=== PATIENT | female | born 1965 | race African-American/Black ===

== ENCOUNTER → 2017-02-16 | Outpatient (CLI) | payer MEDICARE, BC ==
[~2017-02-16] MED LIST: DIFLUCAN200 MG PO; DYAZIDE 37.5/251 CAP PO; FLAGYL PO; HCTZ PO; METOPROLOL SUCC25 MG PO; PERCOCET5/325 PO; PROTONIX PO; RENAL SOFTGEL1 MG PO; VIBRAMYCIN100 M1 PO
--- NOTE | ~2017-02-16 | MY29 ---
[facility] A Service of [facility] & [facility] RADIOLOGY TEXT RESULTS PATIENT: DEANNA BRASWELL LOCATION: [facility] : 61 UNIT #: [id number] AGE: [address]: Amanda Rios APRN SEX: F ORDER DR: [id number] [facility] [address] [place], [place] [address] [id number] O MR#: [id number] Acc #: [id number] NAME: DEANNA BRASWELL : 1965 SEX: F STUDY DATE/TIME: 02/16/2017 12:31 UNIT: [facility] ROOM: STUDY DESCRIPTION: [facility] SCREENING W/ CAD BILAT Attending Physician: Amanda Rios A.P.R.N. Referring Physician: Amanda Rios A.P.R.N. Ordering Physician: Amanda Rios A.P.R.N. Primary Care Physician: Amanda Rios A.P.R.N. MEDICAL IMAGING REPORT This report is preliminary unless electronic signature is present EXAM Digital screening mammogram 02/16/2017 HISTORY 52-year-old woman, no risk elevation. Annual screen. COMPARISON STUDIES Comparison 10/04/2010, 02/20/2012 FINDINGS Digital imaging of each breast was completed utilizing a two-view examination of each breast in craniocaudal and mediolateral-oblique projections. Review and interpretation of digital mammograms include a second review in conjunction with FDA-approved CAD device. There is a normal parenchymal presentation bilaterally consistent with the patient's age. There are no breast masses imaged and no parenchymal asymmetry is visualized. There are no suspicious microcalcifications and I see no focal architectural disturbance. IMPRESSION Negative screening digital mammogram. One-year followup recommended. Patients over the age of 40 are entered into a reminder system with target due date for the next mammogram. A result letter will also be sent to the patient. BIRADS: 1 Negative Dictated by... Babak Morrow M.D. THIS IS AN ELECTRONICALLY VERIFIED REPORT Babak Morrow M.D. at 02/16/2017 4:57 PM [facility] A Service of [facility] RADIOLOGY TEXT RESULTS PATIENT: DEANNA BRASWELL LOCATION: [facility] : 61 UNIT #: [id number] AGE: [address]: Amanda Rios APRN SEX: F ORDER DR: Jona TD: 02/16/2017 15:34 JOB #: [id number] MEDICAL IMAGING REPORT Page 1 of 1 COPY
== END | disposition home or self-care (01) ==
LOC: CWCC 10:00
DX: Z12.31 Encounter for screening mammogram for malignant neoplasm of breast (principal)
CPT/HCPCS: G0202